=== PATIENT | female | born 1940 | race Caucasian/White ===

== ENCOUNTER → 2020-10-01 09:03 | Outpatient (BNVA) | payer MEDICARE, BC, SELFPAY | PROVIDERS: PCP Family Medicine; Visit Provider Family Medicine | DX: I10 Essential (primary) hypertension (principal); R73.03 Prediabetes; E78.5 Hyperlipidemia, unspecified; E03.9 Hypothyroidism, unspecified; Z68.39 Body mass index [BMI] 39.0-39.9, adult | CPT/HCPCS: 80053; 80061; 81015; 82043; 83036; 84443; 85025 ==

== ENCOUNTER → 2020-11-17 11:20 | Outpatient (BNVA) | payer MEDICARE, BC, SELFPAY | PROVIDERS: PCP Family Medicine; Visit Provider Family Medicine | DX: E03.9 Hypothyroidism, unspecified (principal) | CPT/HCPCS: 84443 ==

== ENCOUNTER → 2021-01-07 11:09 | Outpatient (BNVA) | payer MEDICARE, BC, SELFPAY | PROVIDERS: PCP Family Medicine; Visit Provider Family Medicine | DX: E03.9 Hypothyroidism, unspecified (principal) | CPT/HCPCS: 84443 ==

== ENCOUNTER → 2021-04-01 09:39 | Outpatient (BNVA) | payer MEDICARE, BC, SELFPAY | PROVIDERS: PCP Family Medicine; Visit Provider Family Medicine | DX: E03.9 Hypothyroidism, unspecified (principal); I10 Essential (primary) hypertension; R26.81 Unsteadiness on feet; E78.5 Hyperlipidemia, unspecified; M54.9 Dorsalgia, unspecified; G89.29 Other chronic pain; K21.9 Gastro-esophageal reflux disease without esophagitis | CPT/HCPCS: 80053; 84443 ==

== ENCOUNTER 2021-05-18 10:28 | Outpatient (RCR) | payer MEDICARE, BC, SELFPAY | END 2021-06-14 23:59 | disposition home or self-care (01) | LOC: SPT 10:28 | PROVIDERS: PCP Family Medicine; Visit Provider Family Medicine | DX: R26.81 Unsteadiness on feet (principal) | CPT/HCPCS: 97110; 97116; 97161 ==

== ENCOUNTER 2021-06-15 06:00 | Outpatient (RCR) | payer MEDICARE, BC, SELFPAY | END 2021-07-12 23:59 | disposition home or self-care (01) | LOC: SPT 06:00 | PROVIDERS: PCP Family Medicine; Visit Provider Family Medicine | DX: R26.81 Unsteadiness on feet (principal) | CPT/HCPCS: 97110; 97112; 97116 ==

== ENCOUNTER 2021-07-13 06:00 | Outpatient (RCR) | payer MEDICARE, BC, SELFPAY | END 2021-07-29 23:59 | disposition home or self-care (01) | LOC: SPT 06:00 | PROVIDERS: PCP Family Medicine; Visit Provider Family Medicine | DX: R26.81 Unsteadiness on feet (principal) | CPT/HCPCS: 97110; 97112; 97116 ==

== ENCOUNTER → 2021-09-27 10:05 | Outpatient (BNVA) | payer MEDICARE, BC, SELFPAY | PROVIDERS: PCP Family Medicine; Visit Provider Podiatrist Foot & Ankle Surgery | DX: I73.9 Peripheral vascular disease, unspecified (principal); L60.3 Nail dystrophy; R60.0 Localized edema | CPT/HCPCS: 11721 ==

== ENCOUNTER → 2021-09-30 10:23 | Outpatient (BNVA) | payer MEDICARE, BC, SELFPAY | PROVIDERS: PCP Family Medicine; Visit Provider Family Medicine | DX: E03.9 Hypothyroidism, unspecified (principal); I10 Essential (primary) hypertension; R26.81 Unsteadiness on feet; E78.5 Hyperlipidemia, unspecified; M54.9 Dorsalgia, unspecified; G89.29 Other chronic pain; K21.9 Gastro-esophageal reflux disease without esophagitis; Z23 Encounter for immunization | CPT/HCPCS: 80053; 80061; 84443; 85025 ==

== ENCOUNTER 2021-12-12 09:14 | Emergency (ER) | payer MEDICARE, BC, SELFPAY ==
--- NOTE | 2021-12-12 09:15 | XRR_ITS ---
PROCEDURE INFORMATION: Exam: XR Left Wrist Exam date and time: 12/12/2021 10:22 AM Age: 81 years old Clinical indication: Injury or trauma; Fall; Blunt trauma (contusions or hematomas); Wrist; Left; Additional info: Wrist pain/injury TECHNIQUE: Imaging protocol: Radiologic exam of the Left wrist. Views: 3 or more views. COMPARISON: No relevant prior studies available. FINDINGS: Bones/joints: Mild prominence of the scapholunate interval suggests scapholunate ligament tear. No chondrocalcinosis is seen. 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 No acute fracture is identified Soft tissues: No significant soft tissue swelling is seen. XR/XR wrist LT min 3V* [id number] IMPRESSION: 1. No acute fracture is identified. 2. Mild prominence of the scapholunate interval suggests scapholunate ligament tear. 3. 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
[2021-12-12 09:31] VITALS: BP 181/101; PULSE 77; RESP 16; TEMP 37; O2SAT 95; BMI 39.9
--- NOTE | 2021-12-12 10:46 | W.ED.EXTPRO ---
HPI - Extremity Problem General: Chief complaint: Extremity Injury, Upper Stated complaint: Left wrist injury Time Seen by Provider: 12/12/21 10:46 Source: patient Mode of arrival: ambulatory Limitations: no limitations History of Present Illness: 81-year-old female presents to the ER today with left wrist pain that began this morning after a fall. Patient reports she was getting up and became off balance and next thing she knew she fell on the ground. Patient reports she landed on her left hip but somehow must have got her left wrist underneath her. Patient reports pain with any movement of the left wrist. Patient reports swelling of the left wrist. Patient reports normal sensation and movement of the fingers. Patient denies any prior wrist injuries. Patient did not take anything prior to coming to the ER for the pain. Review of Systems General: Reports: 10 or more systems reviewed and unremarkable except in HPI and below PFSH ED PFSH: Medical History Basal cell carcinoma On left christian Chronic back pain GERD (gastroesophageal reflux disease) History of MRSA infection In right knee Hyperlipidemia Hypertension Hypothyroid Prediabetes Surgical History H/O cataract extraction Hip joint replacement status History of ankle surgery Knee joint replacement status Family History Other Stroke Social History Smoking and tobacco status: never smoked Alcohol intake: current Alcohol intake frequency: holidays/special occasions only Alcohol type: other Adopted: No Caregiver/support person: No Lives independently: Yes Household members: none Housing: House Marital status: Single Number of children: 0 Number of grandchildren: 0 Current gender identity: Female Arabella/Uatsdin: Zoroastrianism Agree to transfusion: Yes Physical Exam Const: COMMON NORMALS: no acute distress, average body habitus, patient oriented x3, no limitations, alert and well nourished Resp: COMMON NORMALS: normal respiratory effort and No retractions EFFORT & INSPECTION: Yes able to speak in complete sentences Cardio: COMMON NORMALS: regular rate and regular rhythm RATE: regular rate RHYTHM: regular rhythm Extremity: NARRATIVE EXTREMITY EXAM: Patient has mild swelling and tenderness over the lateral left distal radius. Patient has pain with any range of motion. Patient able to move fingers with no issue and minimal pain. No bruising or lesions noted on the skin. No lacerations. Neuro: COMMON NORMALS: patient oriented x3 SENSORIUM/ORIENTATION: Yes alert Psych: COMMON NORMALS: mental status grossly normal, Normal thought process present and cooperative THOUGHT PROCESS: Normal thought process present Skin: COMMON NORMALS: no rashes or lesions noted and no wounds GENERAL SKIN EXAM: no rashes or lesions noted Course ED course: 81-year-old female presents to the ER today for left wrist pain times a couple of hours. Patient reports she fell this a.m. when getting up out of her chair and landed on her left side. She is unsure if she landed on her wrist or of her wrist was under her. Patient reports since then she has had pain and swelling in the left wrist. Patient denies any prior injuries to this area. She is not taking thing for the pain. Patient reports pain is worse with movement. Patient denies any numbness or tingling of the left arm hand or fingers. We will get an x-ray at this time. Vital Signs: Vital signs: Vital Signs Temperature 98.6 F 12/12/21 09:31 Pulse Rate 77 12/12/21 09:31 Respiratory Rate 16 12/12/21 09:31 Blood Pressure 181/101 12/12/21 09:31 Pulse Oximetry 95 12/12/21 09:31 Oxygen Delivery Me thod 12/12/21 09:31 MDM - Extremity (Nontraumatic) Medical Decision Making 81-year-old female presents to the ER today for left wrist pain times a couple of hours. Patient reports she fell this a.m. when getting up out of her chair and landed on her left side. She is unsure if she landed on her wrist or of her wrist was under her. Patient reports since then she has had pain and swelling in the left wrist. Patient denies any prior injuries to this area. She is not taking thing for the pain. Patient reports pain is worse with movement. Patient denies any numbness or tingling of the left arm hand or fingers. We will get an x-ray at this time. X-ray does not indicate any acute fracture however there is noted to be prominence of the scapholunate interval suggesting a possible scapholunate ligament tear. Discussed findings with patient. We will place patient in a Velcro wrist splint at this time. I will place an Ortho consult for patient to follow-up with Ortho. May need further imaging. Recommend ice and elevation to reduce swelling. Wear splint at all times. Return to the ER with new or worsening symptoms. Patient verbalized understanding and was in agreement with the treatment plan. Lab Data Radiology Impressions Wrist X-Ray 12/12/21 09:15 IMPRESSION: 1. No acute fracture is identified. 2. Mild prominence of the scapholunate interval suggests scapholunate ligament tear. 3. 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 Critical Care Time Critical Care Time: Critical Care Time: No Discharge Plan Discharge Patient Disposition: Home Clinical Impression: Injury of left scapholunate ligament with no instability Condition: Stable Prescriptions: No Action amlodipine 5 mg tablet 5 mg PO DAILY Qty: 90 1RF atorvastatin 20 mg tablet 20 mg PO DAILY Qty: 90 1RF omeprazole 40 mg capsule,delayed release(DR/EC) 40 mg PO DAILY Qty: 90 1RF gabapentin 600 mg tablet 600 mg PO TID Qty: 270 1RF levothyroxine [Levo-T] 75 mcg tablet 75 mcg PO DAILY 90 Days Qty: 90 1RF Discharge Orders: Discharge ED (Routine); Ordered 12/12/21 Ordered By: Ginger Ramirez Referrals: Ashly Read DO [Primary Care Provider] - Discharge Diet: Usual diet Discharge Activity: Limit activity as instructed Patient Instructions: Opioid Safety Activity Restrictions/Additional Instructions: Wear wrist splint until follow-up with Ortho. Apply ice to reduce swelling. Avoid use of the left wrist. Alternate Tylenol Motrin for pain. Return to the ER with new or worsening symptoms. Coding Level of Care Code ED Senior Accounting Clerk for Mohini Baker
--- NOTE | 2021-12-13 08:34 | DCPLANNER ---
Addendum entered by Christina Li 01/05/22 12:22: Patient had follow up appointment scheduled with ortho - patient did attend appointment. Addendum entered by Christina Li 12/14/21 13:06: Patient has a follow up appointment scheduled for December at 1:[address] Villa at ortho. Clinic will call patient with appointment information. Original Note: ops manager had message to schedule a follow up appointment for patient with ortho. ops manager sent patients information to the front office staff at ortho. Patients information will be printed and reviewed. Clinic will call patient with appointment information.
== END 2021-12-12 11:14 | disposition home or self-care (01) ==
PROVIDERS: Emergency Provider Physician Assistant; PCP Family Medicine
DX: S69.82XA Other specified injuries of left wrist, hand and finger(s), initial encounter (principal); W01.0XXA Fall on same level from slipping, tripping and stumbling without subsequent striking against object, initial encounter; E78.5 Hyperlipidemia, unspecified; I10 Essential (primary) hypertension
CPT/HCPCS: 73110; 99283

== ENCOUNTER → 2021-12-16 13:11 | Outpatient (BNVA) | payer MEDICARE, BC, SELFPAY | PROVIDERS: PCP Family Medicine; Visit Provider Orthopaedic Surgery | DX: M25.532 Pain in left wrist (principal); S52.502A Unspecified fracture of the lower end of left radius, initial encounter for closed fracture; W19.XXXA Unspecified fall, initial encounter | CPT/HCPCS: 73110; 99203 ==

== ENCOUNTER 2021-12-16 15:22 | Outpatient (CLI) | payer MEDICARE, BC, SELFPAY | END 2021-12-16 15:23 | disposition home or self-care (01) | LOC: SPT 15:23 | PROVIDERS: PCP Family Medicine; Visit Provider Orthopaedic Surgery | DX: Z46.89 Encounter for fitting and adjustment of other specified devices (principal); S52.592D Other fractures of lower end of left radius, subsequent encounter for closed fracture with routine healing; X58.XXXD Exposure to other specified factors, subsequent encounter | CPT/HCPCS: 97760; L3982 ==

== ENCOUNTER → 2021-12-21 12:14 | Outpatient (BNVA) | payer MEDICARE, BC, SELFPAY | PROVIDERS: PCP Family Medicine; Visit Provider Family Medicine | DX: R06.09 Other forms of dyspnea (principal); R53.83 Other fatigue; I10 Essential (primary) hypertension | CPT/HCPCS: 80053; 83880; 84443; 85025 ==

== ENCOUNTER → 2022-01-04 08:01 | Outpatient (BNVA) | payer MEDICARE, BC, SELFPAY | PROVIDERS: PCP Family Medicine; Visit Provider Podiatrist Foot & Ankle Surgery | DX: I73.9 Peripheral vascular disease, unspecified (principal); L60.3 Nail dystrophy; R60.0 Localized edema | CPT/HCPCS: 11721 ==

== ENCOUNTER → 2022-01-04 13:25 | Outpatient (BNVA) | payer MEDICARE, BC, SELFPAY | PROVIDERS: PCP Family Medicine; Visit Provider Orthopaedic Surgery | DX: S52.502D Unspecified fracture of the lower end of left radius, subsequent encounter for closed fracture with routine healing (principal); X58.XXXD Exposure to other specified factors, subsequent encounter | CPT/HCPCS: 73110; 99213 ==

== ENCOUNTER → 2022-01-25 14:25 | Outpatient (BNVA) | payer MEDICARE, BC, SELFPAY | PROVIDERS: PCP Family Medicine; Visit Provider Orthopaedic Surgery | DX: S52.502D Unspecified fracture of the lower end of left radius, subsequent encounter for closed fracture with routine healing (principal); X58.XXXD Exposure to other specified factors, subsequent encounter | CPT/HCPCS: 73110; 99213 ==

== ENCOUNTER → 2022-02-08 16:29 | Outpatient (BNVA) | payer MEDICARE, BC, SELFPAY | PROVIDERS: PCP Family Medicine; Visit Provider Family Medicine | DX: E03.9 Hypothyroidism, unspecified (principal) | CPT/HCPCS: 84439 ==

== ENCOUNTER → 2022-03-08 15:12 | Outpatient (BNVA) | payer MEDICARE, BC, SELFPAY | PROVIDERS: PCP Family Medicine; Visit Provider Orthopaedic Surgery | DX: S52.502D Unspecified fracture of the lower end of left radius, subsequent encounter for closed fracture with routine healing (principal); X58.XXXD Exposure to other specified factors, subsequent encounter | CPT/HCPCS: 73110; 99213 ==

== ENCOUNTER 2022-03-16 08:50 | Outpatient (CLI) | payer MEDICARE, BC, SELFPAY ==
--- NOTE | 2022-03-16 09:30 | USCV_ITS ---
Shara Garrido Age: 81 Gender: F : 1940 Exam Date: 03/16/2022 09:20 Ordering Phys: Ashly Read DO Technologist: TRANG [place] [facility] [place] TAV[place] BP: 127 / 73 HR: 38 Rhythm: Sinus Technical Quality: Suboptimal MEASUREMENTS (Male / Female) Normal Values 2D ECHO LVOT Diameter 2.0 cm LV Ejection Fraction MOD 2C 62.0 % LV Ejection Fraction 2C AL 63.2 % LA Diameter 4.0 cm LA Width 4.3 cm LA Height 5.8 cm RA Width 4.0 cm RA Height 5.6 cm Aorta at Sinotubular Diameter 2.6 cm M-MODE Aortic Annulus Diameter 2.9 cm LA Ao Ratio MM 1.5 MV E Point Septal Separation 0.2 cm DOPPLER AV Peak Velocity 326.3 cm/s LVOT Peak Velocity 137.0 cm/s AV Area Cont Eq vti 1.3 cm squared AV Area Cont Eq pk 1.3 cm squared MV Peak Velocity 139.0 cm/s MV Area PHT 3.3 cm squared Mitral E to A Ratio 0.9 MV E' Velocity 57.5 cm/s Mitral E to MV E' Ratio 8.8 Mitral E to LV E' Lateral Ratio 8.4 Mitral E to LV E' Septal Ratio 9.3 TR Peak Velocity 319.9 cm/s TR Peak Gradient 40.9 mmHg TR Mean Velocity 310.8 cm/s TR Mean Gradient 44.0 mmHg TR Velocity Time Integral 137.4 cm TV Peak E Velocity 55.0 cm/s Right Atrial Pressure 8.0 mmHg Pulmonary Artery Systolic Pressu 48.9 mmHg PV Peak Velocity 116.0 cm/s FINDINGS Left Ventricle Normal left ventricular size, systolic function and wall thickness, with no regional wall motion abnormalities. Grade I/IV diastolic dysfunction (abnormal relaxation filling pattern), normal to mildly elevated filling pressures. Left ventricular ejection fraction is estimated at 65 %. Right Ventricle Normal right ventricular size and systolic function. Mild pulmonary hypertension, RVSP 48.9 mmHg. Right Atrium Mildly increased right atrial size. Left Atrium Moderately increased left atrial size. Mitral Valve Structurally normal mitral valve. Mild-moderate mitral valve regurgitation. Aortic Valve Structurally normal trileaflet aortic valve. Mild aortic valve calcification. Moderate aortic valve stenosis, mean gradient 25.5 mmHg, KENDRA 1.3 cm squared. Tricuspid Valve Structurally normal tricuspid valve. Trace to mild tricuspid valve regurgitation. Pulmonic Valve Pulmonic valve not well visualized. Pericardium Normal pericardium without effusion. Aorta Normal ascending aorta dimension. IVC The inferior vena cava appears normal. CONCLUSIONS Normal left ventricular size, systolic function and wall thickness, with no regional wall motion abnormalities. Grade I/IV diastolic dysfunction (abnormal relaxation filling pattern), normal to mildly elevated filling pressures. Left ventricular ejection fraction is estimated at 65 %. Normal right ventricular size and systolic function. Mild pulmonary hypertension, RVSP 48.9 mmHg. Mildly increased right atrial size. Moderately increased left atrial size. Structurally normal mitral valve. Mild-moderate mitral valve regurgitation. Structurally normal trileaflet aortic valve. Mild aortic valve calcification. Moderate aortic valve stenosis, mean gradient 25.5 mmHg, KENDRA 1.3 cm squared. There are no prior echocardiogram studies to compare. Dr. Ernesto Resendez MD (Electronically Signed) Final Date: 16 March 2022 15:03 S
== END 2022-03-16 08:51 | disposition home or self-care (01) ==
LOC: RAD 08:50
PROVIDERS: PCP Family Medicine; Visit Provider Family Medicine
DX: R06.09 Other forms of dyspnea (principal); I27.20 Pulmonary hypertension, unspecified; I34.0 Nonrheumatic mitral (valve) insufficiency; I35.0 Nonrheumatic aortic (valve) stenosis; M12.811 Other specific arthropathies, not elsewhere classified, right shoulder
CPT/HCPCS: 73030; 93306; 99203

== ENCOUNTER → 2022-03-31 10:25 | Outpatient (BNVA) | payer MEDICARE, BC, SELFPAY | PROVIDERS: PCP Family Medicine; Visit Provider Family Medicine | DX: E03.9 Hypothyroidism, unspecified (principal); Z23 Encounter for immunization | CPT/HCPCS: 84439; 84443 ==

== ENCOUNTER → 2022-04-19 08:41 | Outpatient (BNVA) | payer MEDICARE, BC, SELFPAY | PROVIDERS: PCP Family Medicine; Visit Provider Podiatrist Foot & Ankle Surgery | DX: I73.9 Peripheral vascular disease, unspecified (principal); L60.3 Nail dystrophy; R60.0 Localized edema | CPT/HCPCS: 11721 ==

== ENCOUNTER → 2022-05-17 12:51 | Outpatient (BNVA) | payer MEDICARE, BC, SELFPAY | PROVIDERS: PCP Family Medicine; Visit Provider Internal Medicine Cardiovascular Disease | DX: R06.02 Shortness of breath (principal); I35.0 Nonrheumatic aortic (valve) stenosis; I34.0 Nonrheumatic mitral (valve) insufficiency; I10 Essential (primary) hypertension | CPT/HCPCS: 93005; 99204; Q3014 ==

== ENCOUNTER → 2022-08-02 11:27 | Outpatient (BNVA) | payer MEDICARE, BC, SELFPAY | PROVIDERS: PCP Family Medicine; Visit Provider Podiatrist Foot & Ankle Surgery | DX: I73.9 Peripheral vascular disease, unspecified (principal); L60.3 Nail dystrophy; R60.0 Localized edema | CPT/HCPCS: 11721 ==

== ENCOUNTER → 2022-09-27 12:15 | Outpatient (BNVA) | payer MEDICARE, BC, SELFPAY | PROVIDERS: PCP Family Medicine; Visit Provider Family Medicine | DX: I10 Essential (primary) hypertension (principal); E03.9 Hypothyroidism, unspecified; R60.0 Localized edema | CPT/HCPCS: 80053; 83880; 84443 ==

== ENCOUNTER → 2022-10-18 14:30 | Outpatient (BNVA) | payer MEDICARE, BC, SELFPAY | PROVIDERS: PCP Family Medicine; Visit Provider Podiatrist Foot & Ankle Surgery | DX: I73.9 Peripheral vascular disease, unspecified (principal); L60.8 Other nail disorders; L60.3 Nail dystrophy; R60.0 Localized edema | CPT/HCPCS: 11721 ==

== ENCOUNTER → 2022-12-20 14:24 | Outpatient (BNVA) | payer MEDICARE, BC, SELFPAY | PROVIDERS: PCP Family Medicine; Visit Provider Podiatrist Foot & Ankle Surgery | DX: I73.9 Peripheral vascular disease, unspecified; E11.9 Type 2 diabetes mellitus without complications; L60.3 Nail dystrophy; R60.0 Localized edema | CPT/HCPCS: 11721; 73630 ==

== ENCOUNTER → 2023-03-21 14:05 | Outpatient (BNVA) | payer MEDICARE, BC, SELFPAY | PROVIDERS: PCP Family Medicine; Visit Provider Podiatrist Foot & Ankle Surgery | DX: I73.9 Peripheral vascular disease, unspecified (principal); L60.3 Nail dystrophy; R60.0 Localized edema | CPT/HCPCS: 11721 ==

== ENCOUNTER → 2023-03-28 09:30 | Outpatient (BNVA) | payer MEDICARE, BC, SELFPAY | PROVIDERS: PCP Family Medicine; Visit Provider Family Medicine | DX: I10 Essential (primary) hypertension (principal); E03.9 Hypothyroidism, unspecified | CPT/HCPCS: 80053; 80061; 84443; 85025 ==

== ENCOUNTER 2023-06-21 09:40 | Outpatient (CLI) | payer MEDICARE, BC, SELFPAY ==
--- NOTE | 2023-06-21 09:44 | USCV_ITS ---
Hema Shara Age: 82 Gender: F : 1940 Exam Date: 06/21/2023 10:00 Ordering Phys: Ruby Avalos MD ([email or web address]) Technologist: Aliza Mathis [place] [facility] [place] [facility] [place]ication: f/u exam BP: / HR: 69 Rhythm: Sinus Technical Quality: Adequate MEASUREMENTS (Male / Female) Normal Values 2D ECHO LV Diastolic Diameter PLAX 3.7 cm 4.2 - 5.9 / 3.9 - 5.3 cm LV Systolic Diameter PLAX 2.8 cm LV Chamber Size 3.2 cm IVS Diastolic Thickness 0.9 cm 0.6 - 1.0 / 0.6 - 0.9 cm IVS Systolic Thickness 0.9 cm LVPW Diastolic Thickness 1.3 cm 0.6 - 1.0 / 0.6 - 0.9 cm LVPW Systolic Thickness 1.5 cm RV Chamber Size 2.7 cm LVOT Diameter 2.0 cm LV Ejection Fraction 2D Teich 10.5 % LV Ejection Fraction MOD 2C 60.9 % LV Ejection Fraction 2C AL 59.5 % LA Diameter 3.1 cm LA Width 3.3 cm LA Height 3.1 cm RA Width 3.4 cm RA Height 3.8 cm Aorta at Sinotubular Diameter 2.6 cm M-MODE Aortic Annulus Diameter 2.6 cm LA Ao Ratio MM 1.2 MV E Point Septal Separation 0.4 cm DOPPLER AV Peak Velocity 293.3 cm/s LVOT Peak Velocity 120.3 cm/s AV Area Cont Eq vti 1.3 cm squared AV Area Cont Eq pk 1.3 cm squared MV Area PHT 2.5 cm squared Mitral E to A Ratio 0.8 MV E' Velocity 49.0 cm/s Mitral E to MV E' Ratio 10.6 Mitral E to LV E' Lateral Ratio 11.4 Mitral E to LV E' Septal Ratio 10.0 TR Peak Velocity 299.9 cm/s TR Peak Gradient 36.0 mmHg TR Mean Velocity 239.9 cm/s TR Mean Gradient 24.3 mmHg TR Velocity Time Integral 109.9 cm TV Peak E Velocity 76.0 cm/s Right Atrial Pressure 3.0 mmHg Pulmonary Artery Systolic Pressu 39.0 mmHg RV Acceleration Time 0.1 s RV Ejection Time 0.4 s RV AcT/ET 0.2 FINDINGS Left Ventricle Left ventricle is normal in size. LV systolic function is normal with EF of 55 to 60%. No regional wall motion normalities are seen. Grade 1 diastolic dysfunction. Right Ventricle Normal in size and function Right Atrium Normal in size Left Atrium Normal in size Mitral Valve Structurally normal mitral valve. Mild mitral regurgitation. Aortic Valve Aortic valve is thickened and calcified. Moderate aortic stenosis with aortic valve area of 1.28 cm squared and mean gradient of 18 mmHg. Tricuspid Valve Mild tricuspid regurgitation. RVSP is 35 to 40 mmHg. This is consistent with mild pulmonary hypertension. Pulmonic Valve Not well visualized Pericardium Normal Aorta Normal in size IVC Not well visualized CONCLUSIONS LV systolic function is normal with EF 55 to 60%. Grade 1 diastolic dysfunction. Mild mitral regurgitation Moderate aortic stenosis. Mild tricuspid regurgitation Mild pulmonary hypertension. Compared to prior echocardiogram from 2021, no significant changes are seen Hong Church MD (Electronically Signed) Final Date: 05 July 2023 11:49 S
== END 2023-06-21 09:41 | disposition home or self-care (01) ==
LOC: RAD 09:41
PROVIDERS: PCP Family Medicine; Visit Provider Internal Medicine Cardiovascular Disease
DX: I08.8 Other rheumatic multiple valve diseases (principal)
CPT/HCPCS: 93306

== ENCOUNTER → 2023-06-28 12:28 | Outpatient (BNVA) | payer MEDICARE, BC, SELFPAY | PROVIDERS: PCP Family Medicine; Visit Provider Internal Medicine | DX: I08.0 Rheumatic disorders of both mitral and aortic valves (principal); I10 Essential (primary) hypertension; E03.9 Hypothyroidism, unspecified; K21.9 Gastro-esophageal reflux disease without esophagitis; E78.2 Mixed hyperlipidemia; R73.03 Prediabetes | CPT/HCPCS: 99214 ==

== ENCOUNTER → 2023-07-25 10:27 | Outpatient (BNVA) | payer MEDICARE, BC, SELFPAY | PROVIDERS: PCP Family Medicine; Visit Provider Podiatrist Foot & Ankle Surgery | DX: L60.8 Other nail disorders (principal); I73.9 Peripheral vascular disease, unspecified; L60.3 Nail dystrophy; R60.0 Localized edema | CPT/HCPCS: 11721 ==

== ENCOUNTER → 2023-08-28 08:05 | Outpatient (BNVA) | payer MEDICARE, BC, SELFPAY | PROVIDERS: PCP Family Medicine; Visit Provider Podiatrist Foot & Ankle Surgery | DX: I73.9 Peripheral vascular disease, unspecified (principal); L03.031 Cellulitis of right toe | CPT/HCPCS: 99213 ==

== ENCOUNTER → 2023-09-01 11:51 | Outpatient (BNVA) | payer MEDICARE, BC, SELFPAY | PROVIDERS: PCP Family Medicine; Visit Provider Podiatrist Foot & Ankle Surgery | DX: L03.031 Cellulitis of right toe (principal); L60.0 Ingrowing nail; I73.9 Peripheral vascular disease, unspecified | CPT/HCPCS: 11750 ==

== ENCOUNTER → 2023-09-19 15:25 | Outpatient (BNVA) | payer MEDICARE, BC, SELFPAY | PROVIDERS: PCP Family Medicine; Visit Provider Podiatrist Foot & Ankle Surgery | DX: I73.9 Peripheral vascular disease, unspecified; Z98.890 Other specified postprocedural states | CPT/HCPCS: 99213 ==

== ENCOUNTER → 2023-09-29 09:04 | Outpatient (BNVA) | payer MEDICARE, BC, SELFPAY | PROVIDERS: PCP Family Medicine; Visit Provider Family Medicine | DX: I10 Essential (primary) hypertension (principal); E03.9 Hypothyroidism, unspecified | CPT/HCPCS: 80048; 84443 ==

== ENCOUNTER → 2023-11-07 11:10 | Outpatient (BNVA) | payer MEDICARE, BC, SELFPAY | PROVIDERS: PCP Family Medicine; Visit Provider Podiatrist Foot & Ankle Surgery | DX: E11.8 Type 2 diabetes mellitus with unspecified complications (principal); I73.9 Peripheral vascular disease, unspecified; L60.3 Nail dystrophy; R60.0 Localized edema; M79.671 Pain in right foot; M79.672 Pain in left foot | CPT/HCPCS: 11721 ==

== ENCOUNTER → 2023-12-22 15:54 | Outpatient (BNVA) | payer MEDICARE, BC, SELFPAY | PROVIDERS: PCP Family Medicine; Visit Provider Emergency Medicine | DX: R53.81 Other malaise (principal); E86.0 Dehydration | CPT/HCPCS: 81000; 87086; 87400; 87426 ==

== ENCOUNTER → 2024-02-19 09:05 | Outpatient (BNVA) | payer MEDICARE, BC, SELFPAY | PROVIDERS: PCP Family Medicine; Visit Provider Podiatrist Foot & Ankle Surgery | DX: I73.9 Peripheral vascular disease, unspecified (principal); L60.3 Nail dystrophy | CPT/HCPCS: 11721 ==

== ENCOUNTER → 2024-03-28 14:29 | Outpatient (BNVA) | payer MEDICARE, BC, SELFPAY | DX: E78.2 Mixed hyperlipidemia (principal); I10 Essential (primary) hypertension | CPT/HCPCS: 80053; 80061 ==

== ENCOUNTER → 2024-05-20 09:24 | Outpatient (BNVA) | payer MEDICARE, BC, SELFPAY | PROVIDERS: Visit Provider Podiatrist Foot & Ankle Surgery | DX: L60.8 Other nail disorders (principal); I73.9 Peripheral vascular disease, unspecified; L60.3 Nail dystrophy | CPT/HCPCS: 11721 ==

== ENCOUNTER 2024-05-22 14:08 | Outpatient (CLI) | payer MEDICARE, BC, SELFPAY ==
--- NOTE | 2024-05-22 14:15 | USCV_ITS ---
Shara Garrido Age: 83 Gender: F : 1940 Exam Date: 05/22/2024 14:21 Ordering Phys: Hong Church M.D ([email or web address]) Technologist: CT Exam Location: [facility] – [place] Indication: as BP: 122 / 84 HR: 66 Rhythm: Sinus Technical Quality: Adequate MEASUREMENTS (Male / Female) Normal Values 2D ECHO LVOT Diameter 2.1 cm LV Ejection Fraction MOD 4C 64.6 % LV Ejection Fraction MOD 2C 57.4 % LV Ejection Fraction 2C AL 5.7 % LA Diameter 3.4 cm RA Systolic Volume 4C AL 46.6 ml RA Systolic Volume 4C MOD 47.0 ml LA Sys Volume AL 65.7 cm cubed LA Sys Volume Index AL 28.1 cm cubed/m squared Aorta at Sinotubular Diameter 2.5 cm M-MODE LA Ao Ratio MM 1.0 AV Cusp Separation MM 1.4 cm DOPPLER AV Peak Velocity 297.0 cm/s AV Area Cont Eq vti 1.3 cm squared AV Area Cont Eq pk 1.4 cm squared MV Area PHT 3.8 cm squared Mitral E to A Ratio 1.0 TV Peak Velocity 320.3 cm/s TR Peak Velocity 324.5 cm/s TR Peak Gradient 42.1 mmHg TR Mean Velocity 245.0 cm/s TR Mean Gradient 27.0 mmHg TR Velocity Time Integral 87.2 cm TV Peak E Velocity 54.0 cm/s PV Peak Velocity 91.8 cm/s FINDINGS Left Ventricle Left ventricle is normal in size. LV systolic function is normal with EF 55 to 60%. No regional wall motion abnormalities are seen. Basal septal hypertrophy Right Ventricle Normal in size and function Right Atrium Normal in size Left Atrium Dilated Mitral Valve Structurally normal mitral valve. Mild mitral regurgitation. Aortic Valve Aortic valve is thickened and calcified. Moderate aortic stenosis with aortic valve area of 1.31cm2 with mean gradient across aortic valve of 21mmHg. Trace aortic regurgitation. Tricuspid Valve Insufficient TR jet to calculate RVSP Pulmonic Valve Not well visualized Pericardium Normal Aorta Normal in size IVC Not well visualized CONCLUSIONS LV systolic function is normal with EF 55 to 60%. Basal septal hypertrophy Mild mitral regurgitation Moderate aortic stenosis. Trace aortic regurgitation Compared to prior echocardiogram from 06/2023, no significant changes are seen. Hong Church MD (Electronically Signed) Final Date: 24 May 2024 12:01 S
== END 2024-05-22 14:09 | disposition home or self-care (01) ==
LOC: RAD 14:09
PROVIDERS: Visit Provider Internal Medicine
DX: I35.2 Nonrheumatic aortic (valve) stenosis with insufficiency (principal); I34.0 Nonrheumatic mitral (valve) insufficiency; I35.8 Other nonrheumatic aortic valve disorders; I42.2 Other hypertrophic cardiomyopathy; R06.02 Shortness of breath
CPT/HCPCS: 93306

== ENCOUNTER → 2024-07-23 09:11 | Outpatient (BNVA) | payer MEDICARE, BC, SELFPAY | PROVIDERS: Visit Provider Podiatrist Foot & Ankle Surgery | DX: I73.9 Peripheral vascular disease, unspecified (principal); L60.3 Nail dystrophy | CPT/HCPCS: 11721 ==

== ENCOUNTER → 2024-08-07 12:29 | Outpatient (BNVA) | payer MEDICARE, BC, SELFPAY | PROVIDERS: Visit Provider Internal Medicine | DX: I35.0 Nonrheumatic aortic (valve) stenosis (principal); I34.0 Nonrheumatic mitral (valve) insufficiency; I10 Essential (primary) hypertension; E03.9 Hypothyroidism, unspecified; K21.9 Gastro-esophageal reflux disease without esophagitis; E78.2 Mixed hyperlipidemia; R73.03 Prediabetes | CPT/HCPCS: 99213 ==

== ENCOUNTER → 2024-08-31 11:13 | Outpatient (BNVA) | payer MEDICARE, BC, SELFPAY | DX: R39.9 Unspecified symptoms and signs involving the genitourinary system (principal); N39.0 Urinary tract infection, site not specified | CPT/HCPCS: 81000; 87086 ==

== ENCOUNTER → 2024-10-22 09:32 | Outpatient (BNVA) | payer MEDICARE, BC, SELFPAY | PROVIDERS: Visit Provider Podiatrist Foot & Ankle Surgery | DX: I73.9 Peripheral vascular disease, unspecified (principal); L60.3 Nail dystrophy | CPT/HCPCS: 11721 ==

== ENCOUNTER → 2024-11-08 11:19 | Outpatient (BNVA) | payer MEDICARE, BC, SELFPAY | PROVIDERS: PCP Family Medicine; Visit Provider Family Medicine | DX: I10 Essential (primary) hypertension (principal); E03.9 Hypothyroidism, unspecified; R73.03 Prediabetes | CPT/HCPCS: 80048; 83036; 84439; 84443; 85025 ==

== ENCOUNTER → 2025-01-21 10:09 | Outpatient (BNVA) | payer MEDICARE, BC, SELFPAY | PROVIDERS: PCP Family Medicine; Visit Provider Podiatrist Foot & Ankle Surgery | DX: I73.9 Peripheral vascular disease, unspecified (principal); L60.3 Nail dystrophy; L60.8 Other nail disorders | CPT/HCPCS: 11721 ==

== ENCOUNTER → 2025-04-22 11:00 | Outpatient (BNVA) | payer MEDICARE, BC, SELFPAY | PROVIDERS: PCP Family Medicine; Visit Provider Podiatrist Foot & Ankle Surgery | DX: E11.8 Type 2 diabetes mellitus with unspecified complications (principal); L60.3 Nail dystrophy; L60.8 Other nail disorders; I73.9 Peripheral vascular disease, unspecified | CPT/HCPCS: 11721 ==

== ENCOUNTER → 2025-05-13 11:24 | Outpatient (BNVA) | payer MEDICARE, BC, SELFPAY | PROVIDERS: PCP Family Medicine; Visit Provider Family Medicine | DX: I10 Essential (primary) hypertension (principal); E03.9 Hypothyroidism, unspecified; E78.2 Mixed hyperlipidemia | CPT/HCPCS: 80053; 80061; 84439; 84443 ==